=== PATIENT | male | born 1960 | race Two or more races ===

== ENCOUNTER 2018-06-18 10:34 | Outpatient (CLI) | payer OTHER ==
[~2018-06-18 10:34] MED LIST: NORVASC5 MG PO
== END 2018-06-18 10:49 | disposition home or self-care (01) ==
LOC: RAD 10:34
DX: M79.642 Pain in left hand (principal)

== ENCOUNTER 2020-07-23 07:22 | Day surgery (SDC) | payer OTHER ==
[~2020-07-23 07:22] MED LIST changes: +ATACAND16 MG PO; +CRESTOR20 MG PO; +LEXAPRO PO; +NASAL MIST126 ML; +PROTONIX20 MG PO
== END 2020-07-23 12:55 | disposition home or self-care (01) ==
LOC: AMB-ENDOS 07:22
PROVIDERS: ATTEND Surgery
DX: D12.3 Benign neoplasm of transverse colon (principal); Z20.822 Contact with and (suspected) exposure to COVID-19